=== PATIENT | female | born 1975 | race Caucasian/White ===

== ENCOUNTER 2019-09-14 17:01 | Outpatient (REF) | payer BC, SELFPAY ==
--- NOTE | 2019-09-14 15:40 | PAPFT_PTH ---
PATIENT: Flores Genao LOC: [facility] U#:[id number] AGE/SX: 44/F ROOM: RE09/14/[address]: Shana Segovia NP : 1975 BED: DIS: 09/14/2019 SPEC #: [id number] RECD: 09/14/19 18:02 STATUS: OVI GILLETTE #: [id number] JULIAN: 09/14/19 15:[address]: Shana Segovia NP DEPT: [facility] Cytology RECD BY: Barb Quiros ENTERED: 09/14/19 18:03 SP TYPE: PAPFT KYM DR: Iqra Local Tissues: 1 - CX/ENDOCX FOR PAP SMEARS Procedures: PAP THIN PREP/UVM Screening HPV DNA PROBE Comments: [id number]
== END 2019-09-14 17:21 ==
LOC: LBN 17:01
PROVIDERS: Visit Provider Nurse Practitioner Women's Health
DX: Z12.4 Encounter for screening for malignant neoplasm of cervix (principal); Z11.51 Encounter for screening for human papillomavirus (HPV)
CPT/HCPCS: 88142; 87624

== ENCOUNTER 2020-09-26 01:50 | Outpatient (CLI) | payer BC, SELFPAY ==
--- NOTE | 2020-09-26 06:45 | DI.MAMMO_ITS ---
EXAM: MG MAMMO SCREENING CLINICAL HISTORY: screening,Z12.39 TECHNIQUE: Bilateral full field digital CC and MLO mammographic images were obtained with 3D tomosyn thesis and utilizing computer aided detection (CAD). COMPARISON: None. FINDINGS: Masses/Architectural Distortion: There is a focal asymmetry in the upper-outer quadrant of the right breast. This area should be further evaluated with spot compression views and ultrasound. Microcalcifications: No suspicious pleomorphic-type are seen. Skin Thickening/Nipple Retraction: None. IMPRESSION: 1. Focal asymmetry in the upper-outer quadrant of the right breast. 2. This area should be evaluated with spot compression views and ultrasound. BI-RADS Category 0 - Assessment Incomplete: Need additional imaging evaluation Breast Density - Category C - Heterogeneously dense Breast density category C or D implies that the patient has dense breast tissue. Dense breast tissue is very common and is not abnormal but dense breast tissue can make it harder to find cancer on a ma mmogram. Also, dense breast tissue may increase their breast cancer risk. This information about the result of the mammogram report was provided to the patient to raise their awareness. Use this report when you speak with the patient about their risks for breast cancer, which includes their family hist ory. At that time, you may recommend for more screening tests (Ultrasound or MRI) as they might be us eful based on their risk. A negative radiographic report should not delay biopsy if a dominant or clinically suspicious mass is present. Up to ten percent of cancers are not identified on mammography. A negative report may reinforce clinical impression. Adenosis and dense breasts may obscure an underlying neoplasm. False positive reports average 6 to 10%. Patient will receive a letter notifying them of these results.
== END 2020-09-26 02:10 ==
PROVIDERS: PCP Family Medicine; Visit Provider Nurse Practitioner Family
DX: Z12.31 Encounter for screening mammogram for malignant neoplasm of breast (principal); R92.8 Other abnormal and inconclusive findings on diagnostic imaging of breast
CPT/HCPCS: 77063; 77067

== ENCOUNTER 2020-09-30 04:08 | Outpatient (CLI) | payer BC, SELFPAY ==
--- NOTE | 2020-09-30 | DI.MAMMO_ITS ---
EXAM: MG MAMMO SCREEN CALL BACK UNI and U/S breast RT limited CLINICAL HISTORY: F/U MAMMO, FOCAL ASYMMETRY UPPER OUTER QUADRANT RT BREAST. TECHNIQUE: Craniocaudal and mediolateral oblique Full Field Digital Mammography views of the right b reast with Computer Aided Diagnosis followed by Tomosynthesis and right breast ultrasound. COMPARISON: Comparison with the baseline mammogram. FINDINGS: Mammography/Tomosynthesis: Masses/Architectural Distortion: There is again seen an area of architectural distortion in the upper -outer quadrant of the right breast best appreciated on the tomographic images. The area lies 6.5 cm from the nipple. Microcalcifictions: No suspicious pleomorphic-type are seen. Skin Thickening/Nipple Retraction: None. Right breast US: Echotexture: Normal appearance of the glandular tissue. Shadowing: There is an area of architectural distortion at the 10 o'clock position of the right breas t which appears to correspond to the mammographic abnormality. Cyst: There are 2 simple cysts seen at the 9 o'clock position of the right breast. The larger lies 2 cm from the nipple and measures 0.6 cm in diameter. The smaller lies 4 cm from the nipple and measu res 0.4 cm. Solid lesions: None seen. Ductal dilation: None. IMPRESSION: 1. There is an area of architectural distortion at the 10 o'clock position of the right breast 10.5 c m from the nipple. 2. Biopsy is recommended for further evaluation. 3. The findings were discussed with the patient on the date of the examination. BI-RADS Category 4 - Suspicious Abnormality: Biopsy should be considered Breast Density - Category C - Heterogeneously dense Breast density Category C or D implies that the patient has dense breast tissue. Dense breast tissue can make it harder to find cancer on a mammogram. Dense breast tissue is also associated with an incr eased risk of breast cancer. This information about the result of the mammogram report was provided to the patient to raise their awareness. Use this report when you speak with the patient about their risks for breast cancer, which includes their family history. At that time, you may recommend additional screening tests (Ultrasoun d or MRI) as these tests may add significant information. A negative radiographic report should not delay biopsy if a dominant or clinically suspicious mass is present. Up to ten percent of cancers are not identified on mammography. A negative report may reinforce clinical impression. Adenosis and dense breasts may obscure an underlying neoplasm. False positive reports average 6 to 10%. Patient will receive a letter notifying them of these results.
== END 2020-09-30 04:28 ==
PROVIDERS: PCP Family Medicine; Visit Provider Nurse Practitioner Family
DX: Z12.31 Encounter for screening mammogram for malignant neoplasm of breast (principal); R92.8 Other abnormal and inconclusive findings on diagnostic imaging of breast; N63.11 Unspecified lump in the right breast, upper outer quadrant
CPT/HCPCS: 76642; 77063; 77067

== ENCOUNTER 2020-10-04 01:26 | Outpatient (CLI) | payer BC, SELFPAY ==
--- NOTE | 2020-10-04 | DI.US_ITS ---
EXAM: RT BREAST MASS, ULTRASOUND GUIDED BIOPSY COMPARISON: Priors available for comparison. TECHNIQUE: Ultrasound performed using standard protocol. FINDINGS: Sonography was provided for Dr. Chao during the performance of a right breast biopsy. Please ref er to the procedure report for complete details. DATA REPOSITORY:
--- NOTE | 2020-10-04 11:40 | BREAST_PTH ---
PATIENT: Flores Genao LOC: [facility] U#:[id number] AGE/SX: 45/F ROOM: RE10/04/[address]: Hetal Chao MD : 1975 BED: DIS: 10/04/2020 SPEC #: [id number] RECD: 10/04/20 12:38 STATUS: OVI REQ #: [id number] JULIAN: 10/04/20 11:[address]: Hetal Chao DEPT: Surgical Specimen RECD BY: Barb Quiros ENTERED: 10/04/20 12:40 SP TYPE: Breast OTHR DR: Erika Juárez Tissues: 1 - BREAST BX NEEDLE 2 - BREAST BX NEEDLE Procedures: GROSS AND MICRO LEVEL 4 Comments: [id number]
--- NOTE | 2020-10-04 16:01 | HPE_ITS ---
Date of service: 10/04/20 Time of Service: 11:00 Assessment and Plan Assessment and plan (1) Abnormal mammogram of right breast: Status: Acute Assessment and plan: Mrs. Genao is a pleasant 45-year-old female who went for her first screening mammogram and was noted to have 2 abnormalities in her right breast at the 10 o'clock position. There is a small lesion at the 10 o'clock position 4 cm from the nipple and then some architectural distortion at the 10 o'clock position 5 cm from the nipple. Radiologist has recommended biopsy of both of these sites. Risks benefits and complications of core needle biopsy under ultrasound guidance was reviewed with the patient. We discussed the procedure in detail and her questions were answered to her satisfaction and she wished to proceed. History of Present Illness History of Present Illness Chief Complaint: Right Breast lesion Narrative: Mrs. Genao is a pleasant 45-year-old female who had her first surveillance mammogram. They noted an abnormality on the right side and she was called back for more views as well as an ultrasound. There were a couple of benign cysts but also an irregular lesion at the 10 o'clock position. There was also architectural distortion at the 10 o'clock position. The radiologist jailene mmended biopsy of both of these areas. There is no family history of breast cancer that she is aware of. Her first menstrual period was around age 14. She had 2 kids and breast-fed both of them. She cannot feel any lumps. She has not noted any nipple discharge or skin changes. Breasts are tender bilaterally. This started after starting on Depo-Provera for abnormal uterine bleeding. Review of Systems Constitutional Constitutional: Denies fever(s) and Denies weight loss Eyes Eyes: Denies change in vision Cardiovascular Cardiovascular: Denies chest pain, Denies chest pain at rest, Denies irregular heart rhythm, Denies palpitations and Denies dyspnea Respiratory Respiratory: Denies cough and Denies dyspnea Gastrointestinal Gastrointestinal: Reports system reviewed and no additional complaints, except as documented Genitourinary Genitourinary: Reports system reviewed and no additional complaints, except as documented Musculoskeletal Musculoskeletal: Reports system reviewed and no additional complaints, except as documented Integumentary/Breasts Skin/Breast: Reports system reviewed and no additional complaints, except as documented Neurologic Neurologic: Reports system reviewed and no additional complaints, except as documented Psychiatric Psychiatric: Reports system reviewed and no additional complaints, except as documented Endocrine Endocrine: Reports as per HPI and Denies palpitations PFSH Medical History Abnormal uterine bleeding 2010 Onset with PP Mirena IUD. 2012 Mirena out. 05/2015 daily bleeding. Anemia. 07/2015 Aygestin BID. 09/2015 Aygestin stopped. Provera 5mg/day. Asthma environmental allergies GERD Herpes labialis Dx in her teens infrequent outbreaks Migraine with aura Surgical History Adenoidectomy section 2010 Endometrial Ablation (04/26/16) HTA ablation. aoc History of broken finger Sept 2018, surgical repair Nasal septoplasty Rhinoplasty Family History Mother Depression Hypertension Brother Depression Other Hyperlipidemia Mental disorder Social History Smoking/Tobacco Use Status: Former Tobacco Use Smoking risk assessment performed?: Yes Drug use: Never History History 2 Para 2 Hx # Term Pregnancies Multiple births Hx # Pregnancies Ectopic pregnancies AB induced Hx Number of Living Children AB spontaneous Meds Home Medications and Allergies Allergies Allergy/AdvReac Type Severity Reaction Status Date / Time aspirin Allergy Intermediate Itching Unverified 09/26/20 08:07 NSAIDS (Non-Steroidal Allergy Intermediate Itching Unverified 09/26/20 08:07 Anti-Inflamma Penicillins Allergy Intermediate A CHILD Unverified 09/26/20 08:07 Home Medications Medication Instructions Recorded Confirmed Type albuterol sulfate 1 - 2 puff INHALATION Q4H PRN 05/13/13 04/26/16 History inhaler cetirizine [Zyrtec] 10 mg PO DAILY 05/13/13 04/26/16 History lansoprazole [Prevacid] 15 mg PO DAILY tab-cap 05/13/13 04/26/16 History trazodone 50 mg PO HS tab-cap 03/23/16 04/26/16 History budesonide-formoterol [Symbicort 10.2 gm INHALATION BID 04/26/16 04/26/16 History 160-4.5 Mcg Inhaler] melatonin 10 mg PO DAILY 03/14/18 History montelukast [Singulair] 10 mg PO DAILY tab-cap 03/14/18 History cholecalciferol (vitamin D3) 25 25 mcg PO DAILY 09/14/19 09/14/19 History mcg (1,000 unit) chewable tablet naratriptan 2.5 mg tablet 2.5 mg PO ONCE 09/14/19 09/14/19 History sertraline 100 mg tablet 100 mg PO DAILY 09/14/19 09/14/19 History medroxyprogesterone 150 mg/mL 150 mg IM Q12W #1 ml 03/18/20 03/18/20 Rx intramuscular suspension Exam Const General: cooperative, comfortable and no acute distress Orientation: alert and oriented x3 Chest Chest: normal inspection of the chest Breast inspection: normal inspection of the breasts Breast palpation: normal palpation of the breasts and normal palpation of the axillae Resp Effort & Inspection: normal respiratory effort Procedures Other Procedure Description/Findings: Pre-op Dx: Right Breast Mass and architectural distortion Post-op Dx: same Procedure: US guided Core needle biopsy of the Right Breast x 2 Surgeon: Keon Chao MD Anesthesia: Local anesthesia with 1% Lidocaine Blood loss: 5 cc Specimen: Core needle biopsy of both areas Complications: no immediate complications Procedure: After informed consent was obtained the patient was placed in a supine position. Us was done of the Breast and the lesion was localized by the US tech. The skin was cleaned with alcohol and infiltrated with the above local anesthetic. The skin was then prepped. An incision was made with an 11 blade. The first lesion was localized to the 10 o'clock position, 4 cm from the nipple. Using a 14 gauge core needle 2 specimens were removed and placed on telfa and placed in formalin. After taking 2 biopsies an attempt was made at placing a clip, but the lesion could not be found again. The architectural distortion was localized at the 10 o'clock position , 5 cm from the nipple. 2 biopsies were done with a 14 gauge needle and a clip was left in place. The skin was cleaned and dried and a band aid was applied. The patient tolerated the procedure well and there were no immediate complications. I will call her with results of the biopsies as soon as they are available.
== END 2020-10-04 01:46 ==
PROVIDERS: PCP Family Medicine; Visit Provider Surgery
DX: R92.8 Other abnormal and inconclusive findings on diagnostic imaging of breast (principal); N60.21 Fibroadenosis of right breast
CPT/HCPCS: 19083; 19084; 88305; 99222; 76942

== ENCOUNTER → 2022-01-12 00:01 | Outpatient (CLI) | payer BC, SELFPAY | PROVIDERS: PCP Family Medicine; Visit Provider Nurse Practitioner Family ==